=== PATIENT | male | born 1975 | race Caucasian/White ===

== ENCOUNTER 2017-01-10 15:56 | Emergency (ER) | payer OTHER | END 2017-01-10 16:50 | disposition home or self-care (01) | LOC: ER1 15:56 | DX: K02.9 Dental caries, unspecified (principal); F17.290 Nicotine dependence, other tobacco product, uncomplicated | CPT/HCPCS: 99282 ==

== ENCOUNTER 2017-02-10 16:51 | Emergency (ER) | payer OTHER | END 2017-02-10 19:20 | disposition home or self-care (01) | LOC: ER1 16:51 | DX: S16.1XXA Strain of muscle, fascia and tendon at neck level, initial encounter (principal); S39.012A Strain of muscle, fascia and tendon of lower back, initial encounter; F17.290 Nicotine dependence, other tobacco product, uncomplicated; V43.62XA Car passenger injured in collision with other type car in traffic accident, initial encounter; Y92.410 Unspecified street and highway as the place of occurrence of the external cause | CPT/HCPCS: 72040; 72100; 72125; 96372; 99284; J1885 ==